=== PATIENT | female | born 1995 | race Caucasian/White ===

== ENCOUNTER 2017-02-24 18:20 | Emergency (ER) | payer SELFPAY ==
[~2017-02-24] VITALS: Ht 160 cm; Wt 96.2 kg
[~2017-02-24 18:20] MED LIST: AZIT-14 PO; PREN1TAB60 PO
[2017-02-24] MEDS ORDERED: SODIUM CHLORIDE 0.9% 1,000 ML IV ONE (19:03)
[2017-02-24 19:13] LABS: HEMOGLOBIN 14.2 g/dL (11.7-16.4)
[2017-02-24 19:17] LABS: ASPARTATE AMINO TRANSFERASE 16 U/L (15-37); BLOOD UREA NITROGEN 17 mg/dL (7-18)
[2017-02-24] MEDS ORDERED: SODIUM CHLORIDE FLUSH 10ML SYR IVF ONE (19:30)
[2017-02-24] MEDS ORDERED: SODIUM CHLORIDE 0.9% 1,000ML IVBOLUS ONE (19:30)
[2017-02-24 20:45] VITALS: BP 130/81
== END 2017-02-24 20:48 | disposition home or self-care (01) ==
LOC: ED 20:45
DX: A08.4 Viral intestinal infection, unspecified (principal); R10.84 Generalized abdominal pain; Z88.1 Allergy status to other antibiotic agents
CPT/HCPCS: 36415; 71020; 80053; 81001; 82962; 83690; 84703; 85025; 87086; 93005; 99285; J7030

== ENCOUNTER 2017-07-17 18:09 | Emergency (ER) | payer OTHER ==
[~2017-07-17] VITALS: Ht 162.6 cm; Wt 101.3 kg
[~2017-07-17 18:09] MED LIST changes: -AZIT-14 PO; +AZIT250T89 PO
[2017-07-17 20:10] VITALS: BP 136/81
== END 2017-07-17 20:12 | disposition home or self-care (01) ==
LOC: ED 20:10
DX: S40.011A Contusion of right shoulder, initial encounter (principal); J01.00 Acute maxillary sinusitis, unspecified; X58.XXXA Exposure to other specified factors, initial encounter; Y93.89 Activity, other specified; Y92.89 Other specified places as the place of occurrence of the external cause; Y99.8 Other external cause status
CPT/HCPCS: 99284

== ENCOUNTER 2018-03-30 10:11 | Emergency (ER) | payer BC, OTHER ==
[~2018-03-30] VITALS: Ht 160 cm; Wt 96.0 kg
[2018-03-30 10:12] VITALS: BP 146/102
[2018-03-30] MEDS ORDERED: DIAZEPAM 5 MG TABLET PO ONE (10:46)
[2018-03-30] MEDS ORDERED: HYDROcodone/APAP 5/325 TABLET PO ONE (11:00)
[2018-03-30] MEDS ORDERED: HYDROcodone/APAP 5/325 TABLET ONE (11:00)
[2018-03-30] MEDS ORDERED: DIAZEPAM 5 MG TABLET ONE ×2 (11:00→11:17)
== END 2018-03-30 12:11 | disposition home or self-care (01) ==
LOC: ED 11:52
DX: S16.1XXA Strain of muscle, fascia and tendon at neck level, initial encounter (principal); G44.52 New daily persistent headache (NDPH); F07.81 Postconcussional syndrome; I10 Essential (primary) hypertension; W19.XXXA Unspecified fall, initial encounter; Y93.72 Activity, wrestling; Y92.009 Unspecified place in unspecified non-institutional (private) residence as the place of occurrence of the external cause; Y99.8 Other external cause status
CPT/HCPCS: 70450; 99284

== ENCOUNTER 2019-10-30 08:28 | Emergency (ER) | payer SELFPAY ==
[~2019-10-30] VITALS: Ht 162.6 cm; Wt 78.2 kg
--- NOTE | 2019-10-30 09:47 | NUR ---
TO XRAY VIA [facility]
[2019-10-30] MEDS ORDERED: SODIUM CHLORIDE FLUSH 10ML SYR IVF ONE (10:00)
[2019-10-30] MEDS ORDERED: ONDANSETRON 2MG/ML, 2ML IVPush ONE (10:00)
--- NOTE | 2019-10-30 10:10 | NUR ---
OFF FLOOR TO MRI
[2019-10-30 10:23] LABS: BASOPHILS # (AUTO) 0.04 x10^3/uL (0-0.1); BASOPHILS % (AUTO) 1 % (0-1); EOSINOPHILS # (AUTO) 0.13 x10^3/uL (0-0.4); EOSINOPHILS % (AUTO) 2 % (1-7); LYMPHOCYTES # (AUTO) 1.84 x10^3/uL (1-3.4); LYMPHOCYTES % (AUTO) 28 % (22-44); MD NO; MEAN CORPUSCULAR HEMOGLOBIN 31.9 pg (27.0-34.8); MEAN CORPUSCULAR HGB CONC 33.3 g/dL (32.4-35.8); MEAN CORPUSCULAR VOLUME 95.8 fL (80-100); MEAN PLATELET VOLUME 8.3 fL (7.4-10.4); MONOCYTES # (AUTO) 0.37 x10^3/uL (0.2-0.8); MONOCYTES % (AUTO) 6 % (2-9); NEUTROPHILS # (AUTO) 4.26 x10^3/uL (1.8-6.8); NEUTROPHILS % (AUTO) 64 % (42-75); PLATELET COUNT 370 x10^3/uL (130-400); RED BLOOD COUNT 4.67 x10^6/uL (3.82-5.3); RED CELL DISTRIBUTION WIDTH 13.1 % (9.6-15.2)
[2019-10-30 10:27] LABS: ALBUMIN 3.9 g/dL (3.4-5.0); ANION GAP 8 mmol/L (5-15); CALCIUM 9.1 mg/dL (8.5-10.1); CHLORIDE 111 mmol/L (98-107); CREATININE 0.77 mg/dL (0.55-1.02)
[2019-10-30 10:27] LABS: MICROSCOPIC NOT IND
[2019-10-30 10:46] LABS: CULTURE INDICATED? NO
[2019-10-30] MEDS ORDERED: ONDANSETRON 2MG/ML, 2ML ONE (11:00)
[2019-10-30] MEDS ORDERED: MORPHINE SULFATE 4 MG/ML, 1ML ONE ×2 (11:00→12:21)
[2019-10-30] MEDS: MORPHINE SULFATE 4 MG/ML, 1ML IVPush PRN ×2 (11:02→12:22)
--- NOTE | 2019-10-30 11:08 | NUR ---
UPON RETURN FROM MRI MEDICATED NOTED ON MAR
[2019-10-30 12:25] VITALS: BP 136/87
--- NOTE | 2019-10-30 12:25 | NUR ---
MEDICATED NOTED ON JAN FOR CONTINUED RIGHT KNEE AND BACK PAIN
== END 2019-10-30 12:55 | disposition home or self-care (01) ==
LOC: ED 10:53
DX: O26.891 Other specified pregnancy related conditions, first trimester (principal); S39.012A Strain of muscle, fascia and tendon of lower back, initial encounter; M54.16 Radiculopathy, lumbar region; M54.41 Lumbago with sciatica, right side; R42 Dizziness and giddiness; F17.210 Nicotine dependence, cigarettes, uncomplicated; Z3A.00 Weeks of gestation of pregnancy not specified; X58.XXXA Exposure to other specified factors, initial encounter; Y93.89 Activity, other specified; Y92.89 Other specified places as the place of occurrence of the external cause; Y99.8 Other external cause status
CPT/HCPCS: 36415; 72148; 73564; 80048; 81003; 82040; 84702; 85025; 93005; 96374; 96375; 96376; 99284; J2270; J2405; 84703